=== PATIENT | female | born 1950 | race Caucasian/White ===

== ENCOUNTER 2019-06-18 12:53 | Outpatient (CLI) | payer MEDICARE, OTHER, SELFPAY ==
--- NOTE | ~2019-06-18 | XR_ITS ---
EXAMINATION: XR md joint inject/asp w image DATE: 06/18/2019 14:02 INDICATION: Right talonavicular osteoarthritis. TECHNIQUE: A time-out was performed to verify the patient's name, date of , and procedure to b e performed. The procedure including the risks, benefits, and alternatives was discussed with the pat ient. Risks discussed included bleeding, allergic reaction and infection. The patient understood the risks and agreed to proceed. The skin overlying the junction of the medial and mid navicular cuneifo rm articulations was prepped and draped in usual sterile fashion. Anesthetic was administered with 1 % lidocaine subcutaneously. A 23 G needle was advanced under fluoroscopic guidance into the joint. Injection of 0.2 mL of Omnipaque 240 confirmed intra-articular position of the needle. Subsequently, injectate consisting of 1 mL 40 mg/mL Kenalog was instilled. Washout of contrast was seen confirming intra-articular administration. The needle was removed and the entry site was cleaned and dressed. There were no immediate complications. Fluoroscopy exposure time was 0.3 minutes. The total number of images was 2. FINDINGS: Real-time fluoroscopy demonstrates the needle in the right navicular cuneiform joint. Patie nt's pain prior to procedure:6/10. Patient's pain following the procedure: 5/10. IMPRESSION: 1. Right naviculocuneiform injection of steroid. Reviewed, dictated and finalized at location A.
== END 2019-06-18 12:54 | disposition home or self-care (01) ==
PROVIDERS: PCP Family Medicine; Visit Provider Podiatrist Foot & Ankle Surgery
DX: M19.071 Primary osteoarthritis, right ankle and foot (principal)
CPT/HCPCS: 20605; 77002; J3301; Q9966